=== PATIENT | female | born 1965 | race Caucasian/White ===

== ENCOUNTER → 2024-04-27 12:48 | Outpatient (REF) | payer OTHER, SELFPAY | LOC: WDC 12:48 | PROVIDERS: ATTENDING PHYSICIAN Obstetrics & Gynecology Gynecology; FAMILY PHYSICIAN Family Medicine | DX: Z12.31 Encounter for screening mammogram for malignant neoplasm of breast (principal) | CPT/HCPCS: 77063; 77067 ==

== ENCOUNTER 2024-09-17 21:40 | Emergency (ER) | payer OTHER, SELFPAY ==
[2024-09-17 21:40] VITALS: BMI 22.2
[2024-09-17 21:46] VITALS: BP 140/86
--- NOTE | 2024-09-18 00:58 | ED.GENMED ---
History of Present Illness
General
Chief Complaint: Back Pain
Source: patient
Exam Limitations: none
Time Seen by Provider: 09/18/24 00:49
History of Present Illness
History of Present Illness:
59-year-old female presents with significant lower back spasms starting today. She just leaned over to pick something up and then while leaning over felt a pull in her back. Since then she has had increasing spasm and pain in the lower back. She
denies any bowel or bladder dysfunction. She denies any perianal esthesia. No fever. She has had back issues in the past which tend to go away. She tried an oxycodone earlier today with the methocarbamol without any relief. No chest pain no
pleuritic component. No urinary symptoms.
Phy Exam
Physical Exam
Physical Exam:
General: Uncomfortable appearing female no acute distress
HEENT normocephalic atraumatic
Musculoskeletal exam: Mild paraspinous tenderness over the lumbosacral junction bilaterally
Neuro: good sensation bilateral lower extremities
Skin: no rash.
Course
Orders/Labs/Results
Orders:
Orders
09/18/24 00:57
HYDROmorphone [Dilaudid] 0.5 mg IV NOW STA
Ketorolac [Toradol] 15 mg IV NOW STA
diazePAM [Valium Injection] 5 mg IV NOW STA
Vital Signs
Initial and Last Documented VS:
Initial Vital Signs
Temp Pulse Resp BP Pulse Ox
98.6 F 80 18 140/86 99
09/17/24 21:46 09/17/24 21:46 09/17/24 21:46 09/17/24 21:46 09/17/24 21:46
Last Documented Vital Signs
Temp Pulse Resp BP Pulse Ox
98.6 F 80 18 140/86 97
09/17/24 21:46 09/17/24 21:46 09/17/24 21:46 09/17/24 21:46 09/18/24 01:45
MDM/Problems Addressed
Differential Diagnosis Includes:
Lower back pain likely muscular sprain. No trauma to suggest fracture. No red flags to suggest cauda equina or fever to suggest infectious source.
Will try to treat symptomatically
*Critical Care Note
Total Time (30-74mins, 75-104mins- exclusive of procedures): Not Applicable
Update Note
Update Note:
Patient feeling better after round of medicine. She is now ambulatory. Suspect underlying lumbar strain. No red flags for cauda equina or abscess
Will prescribe medicine for her to be taking at home. Stable for discharge
ED Attending Note
-
Portions of this chart may have been created with voice recognition software.� Occasional wrong word or��sound alike� substitutions may have occurred due to the inherent limitations of voice recognition software.
Discharge Plan
Departure
Patient Disposition: Home (Routine Discharge)
Date of Disposition: 09/18/24
Time of Disposition: 02:32
Patient with high blood pressure during this ER visit?: No
Discharge Problem:
Lumbar strain
Instructions: Low Back Pain (DC)
Prescriptions:
New
diazepam [Valium] 5 mg tablet
5 mg PO TID PRN (Reason: spasm) Qty: 10 0RF
prednisone 10 mg Tablet
See Rx Instructions .ROUTE .COMPLEX Qty: 30 0RF
Rx Instructions:
Take By Mouth:
40 mg daily x3 days, 30 mg daily x3 days,
20 mg daily x3 days, 10 mg daily x3 days.
oxycodone-acetaminophen [Percocet] 5-325 mg tablet
1 tab PO TID PRN (Reason: Pain) Qty: 7 0RF
Referrals:
Troibio Mathews DO [Family Provider] -
Activity Restrictions/Additional Instructions:
Continue medication as directed. Use warm compresses to the area. Consider Lidoderm patch to the area. Return if worse otherwise follow-up with your doctor
Interventions
Interventions:
*Risk Screen - Suicide Last Done: 09/17/24 21:49
*Neglect/Abuse Screening Last Done: 09/17/24 21:49
ED-Musculoskeletal Assessment Last Done: 09/18/24 01:31
Discharge Date and Time
Print Language: ARMENIAN
[2024-09-18] MEDS: TORADOL 15 MG IV (01:25)
[2024-09-18] MEDS: VALIUM INJECTION 5 MG IV (01:26)
[2024-09-18] MEDS: DILAUDID 0.5 MG IV (01:57)
[2024-09-18 02:00] VITALS: BP 127/85
== END 2024-09-18 02:49 | disposition home or self-care (01) ==
LOC: EMR 21:40
PROVIDERS: EMERGENCY PHYSICIAN Emergency Medicine; FAMILY PHYSICIAN Family Medicine
DX: S39.012A Strain of muscle, fascia and tendon of lower back, initial encounter (principal); X50.1XXA Overexertion from prolonged static or awkward postures, initial encounter
CPT/HCPCS: 96374; 96375; 99284

== ENCOUNTER → 2025-01-25 19:54 | Outpatient (REF) | payer OTHER, SELFPAY | LOC: PAVMRI 19:54 | PROVIDERS: ATTENDING PHYSICIAN Student in an Organized Health Care Education/Training Program; FAMILY PHYSICIAN Family Medicine | DX: M54.2 Cervicalgia (principal); M47.812 Spondylosis without myelopathy or radiculopathy, cervical region; M43.12 Spondylolisthesis, cervical region | CPT/HCPCS: 72141 ==